=== PATIENT | female | born 1995 | race Hispanic/Latino ===

== ENCOUNTER 2018-06-29 22:38 | Emergency (ER) | payer OTHER, SELFPAY ==
[2018-06-29] MEDS: ALBUTEROL SULFATE 2.5 MG/0.5 ML INH NEB SOLN NEB ×2 (23:23)
[2018-06-29] MEDS: ACETAMINOPHEN TAB 650MG DOSE (2X325MG) PO ×2 (23:29)
[2018-06-30] MEDS: LIDOCAINE 1% MDV 20ML VIAL IM ×2 (00:07)
[2018-06-30] MEDS: dexameTHASONE 4 MG/ML 1ML VIAL (J1100) IM ×2 (00:07)
[2018-06-30] MEDS: cefTRIAXone SOD 1 GM VIAL (J0696) IM ×2 (00:10)
[2018-06-30] MEDS: IBUPROFEN 800 MG TAB PO ×2 (00:11)
== END 2018-06-30 00:48 | disposition home or self-care (01) ==
LOC: M ED 06-30 00:48
DX: J06.9 Acute upper respiratory infection, unspecified (principal); R50.9 Fever, unspecified; R91.8 Other nonspecific abnormal finding of lung field
CPT/HCPCS: J1100